=== PATIENT | male | born 1980 | race African-American/Black ===

== ENCOUNTER 2018-05-08 21:05 | Emergency (ER) | payer SELFPAY, OTHER ==
[2018-05-08] MEDS: IBUPROFEN 800 MG TAB PO (23:50)
== END 2018-05-09 01:18 | disposition home or self-care (01) ==
LOC: FTE 05-09 01:18
DX: M25.532 Pain in left wrist (principal); M54.5 Low back pain; F17.210 Nicotine dependence, cigarettes, uncomplicated
CPT/HCPCS: 72100; 99283